=== PATIENT | female | born 2000 | race African-American/Black ===

== ENCOUNTER 2025-10-06 00:43 | Emergency (ER) | payer MEDICAID ==
[~2025-10-06] VITALS: Ht 170.2 cm; Wt 63.0 kg
[2025-10-06] MEDS: ALBUTEROL (0.083%) 2.5MG/3ML NEB HHN ONE (03:29)
[2025-10-06 03:30] VITALS: PULSE 90; RESP 20; O2SAT 96
[2025-10-06] MEDS: IPRATROPIUM BROMIDE (0.02%) 0.5MG/2.5ML NEB HHN ONE (03:30)
[2025-10-06] MEDS: PREDNISOLONE 15 MG/5 ML ORAL SYRINGE PO ONE (03:37)
[2025-10-06] MEDS ORDERED: INHA1SPA3 INH (06:05)
[2025-10-06] MEDS ORDERED: ALBU18HF2 IH (06:05)
[2025-10-06] MEDS ORDERED: ALBU05 NEB (06:05)
[2025-10-06 06:09] VITALS: BP 112/71; PULSE 96; RESP 20; TEMP 37.2; O2SAT 96
== END 2025-10-06 06:44 | disposition home or self-care (01) ==
LOC: ER 01:01
DX: J45.901 Unspecified asthma with (acute) exacerbation (principal); Z20.822 Contact with and (suspected) exposure to COVID-19
CPT/HCPCS: 94640; 99285; Z7610 ×3; 94070